=== PATIENT | male | born 1965 | race Caucasian/White ===

== ENCOUNTER 2017-05-04 11:52 | Emergency (ER) | payer OTHER ==
[~2017-05-04] VITALS: Ht 165.1 cm; Wt 89.0 kg
[2017-05-04 11:56] VITALS: Ht 165.1 cm; Wt 89.0 kg
--- NOTE | 2017-05-04 14:48 | ERD ---
ER Documentation Chief Complaint Date/Time DATE: 05/04/17 TIME: 14:43 Chief Complaint RIGHT FACIAL SWELLING, CAME FROM DENTIST ROS All systems reviewed and are negative except as per history of present illness. Physical Exam Vitals Vital Signs Date Time Temp Pulse Resp B/P Pulse Ox O2 Delivery O2 Flow Rate FiO2 05/04/17 11:56 98.8 90 20 160/90 99 Vitals stable, triage notes reviewed Physical Exam Const: [] Head: Atraumatic Eyes: Normal Conjunctiva ENT: Normal External Ears, Nose and Mouth. Neck: Full range of motion..~ No meningismus. Resp: Clear to auscultation bilaterally Cardio: Regular rate and rhythm, no murmurs Abd: Soft, non tender, non distended. Normal bowel sounds Skin: No petechiae or rashes Back: No midline or flank tenderness Ext: No cyanosis, or edema Neur: Awake and alert Psych: Normal Mood and Affect Results 24 hrs Current Medications Medications (Trade) Dose Ordered Sig/Red Route PRN Reason Start Time Stop Time Status Last Admin Dose Admin Ibuprofen (Motrin) 400 mg ONCE ONCE PO 05/04/17 15:00 05/04/17 15:09 DC GABBY LAWSON May 04, 2017 14:48 05/04/17 15:01 UNV GABBY LAWSON May 04, 2017 14:48
[2017-05-04] MEDS ORDERED: IBUPROFEN 200 MG TAB PO ONE (15:00)
[2017-05-04] MEDS ORDERED: CLINDAMYCIN 900 MG/D5W (PMX) 50 ML IVPB STA (15:21)
[2017-05-04] MEDS ORDERED: HYDROCODONE/APAP (10/325) TAB PO ONE (15:30)
[2017-05-04] MEDS ORDERED: SOD CHLORIDE 0.9% 1,000 ML IV ONE (15:30)
[2017-05-04] MEDS ORDERED: CLINDAMYCIN 300 MG INJ IM ONE (16:00)
[2017-05-04] MEDS ORDERED: CLIN-73 PO (17:00)
--- NOTE | 2017-05-04 17:00 | ERD ---
ER Documentation Chief Complaint Date/Time DATE: 05/04/17 TIME: 16:48 Chief Complaint RIGHT FACIAL SWELLING, CAME FROM DENTIST HPI This 51-year-old male patient presents to emergency room for evaluation of right -sided jaw swelling. Patient reports root canal 3 weeks ago, status post antibiotic treatment, patient went to his dentist today for sudden onset of swelling which started yesterday. Dentist referred him to emergency department reporting that unable to exercise #30 tooth related to swelling. Patient has been on Augmentin 3 weeks ago. Patient had use Tylenol with codeine for pain control, has 1 pill left. ROS All systems reviewed and are negative except as per history of present illness. Physical Exam Vitals Vital Signs Date Time Temp Pulse Resp B/P Pulse Ox O2 Delivery O2 Flow Rate FiO2 05/04/17 11:56 98.8 90 20 160/90 99 Vitals stable, triage notes reviewed Physical Exam Const: Well-nourished, obese, well-hydrated 51-year-old male patient with obvious facial swelling no acute distress Head: Atraumatic Eyes: Normal Conjunctiva PERRLA, EOMI ENT: Normal External Ears, Nose , #30 tooth difficult to view related to gingival swelling, swelling in his past border of mandible, involves the submandibular space. Tongue is midline without swelling, normal height. Patient able to fully shut jaw, speech is clear, no saliva pooling posteriorly. Neck: Full range of motion..~Submandibular swelling Resp: Respirations even and unlabored, clear to auscultation bilaterally no stridor, or wheezing Cardio: S1-S2, no S3-S4 regular rate and rhythm, no murmurs Abd: Skin: Right mandible and submandibular swelling, erythema noted in inner cheek Back: Ext: Neur: Awake and alert Psych: Normal Mood and Affect Results 24 hrs Current Medications Medications (Trade) Dose Ordered Sig/Red Route PRN Reason Start Time Stop Time Status Last Admin Dose Admin Ibuprofen 400 mg 400 mg ONCE ONCE PO 05/04/17 15:00 05/04/17 15:09 DC Clindamycin HCl/ Dextrose 50 ml @ 50 mls/hr ONCE STAT IVPB 05/04/17 15:21 05/04/17 15:42 DC Sodium Chloride (NS) 1,000 ml @ 1,000 mls/hr Q1H ONCE IV 05/04/17 15:30 10/16/17 15:42 DC Acetaminophen/ Hydrocodone Bitart ([place] (10/325)) 1 tab ONCE ONCE PO 05/04/17 15:30 05/04/17 15:42 DC Clindamycin Phosphate (Cleocin) 600 mg ONCE ONCE IM 05/04/17 16:00 05/04/17 16:01 DC Procedures/MDM This 51-year-old male patient presents to emergency department for evaluation of right mandibular swelling, patient reports history of root canal 3 weeks ago , sudden onset of swelling yesterday, has seen his dentist today who instructed patient to go to emergency department for evaluation and treatment. Dentist documents unable to pull #32 secondary to swelling. Dentist is Dr. Zamorano. Patient's speech is clear, tongue is midline with no shift. No saliva pooling in throat. No stridor, no fever, patient able to open and close mouth without deficit. This case discussed with supervising physician Dr. Stapleton, imaging is not indicated at this time. In room course includes 600 mg intramuscular clindamycin, 5/325 milligrams [place] for pain, patient discharged home with clindamycin 300 mg 4 times daily 10 days, [place] 5/325 #20. Instructed to follow-up with dentist, return to emergency department 48 hours for reevaluation , strep return to emergency room instructions provided. Patient to return for difficulty swallowing, fever, pain not relieved with treatment, Patient is stable with no new complaints during ER course, clinically there is no current evidence to suggest airway obstruction, foreign body in airway, cellulitis, parotiditis, respiratory distress, or any other emergent condition appearing to require further evaluation or hospitalization. I feel the patient is stable for discharge at this time. I have discussed results, examination findings, the treatment plan with the patient and family present prior to discharge. Indications for emergent reevaluation, side effects of medication were also discussed. All questions were answered. Patient verbalizes understanding and agrees with plan of care. Departure Diagnosis: Primary Impression: Dental infection Condition: Good Patient Instructions: Dental Abscess, Dental Pain [facility] Additional Instructions: Thank you for for coming to [facility] for your care today. Please ask your nurse or provider if you have questions about your care today and do not leave until all your questions have been answered. Please use any medications given as directed and follow-up with your doctor (or the doctor you were referred to) in the next 2-3 days. If you do not have a primary care doctor you may follow up at the [facility] (listed below). You may also use motrin and tylenol as needed for fever and/or pain unless instructed otherwise by your provider or nurse. Indications for more urgent follow-up have been discussed, but you may return to the Emergency Department at ANY time for any worrisome or worsening symptoms. If you have abdominal pain, please know that no test or exam you received is perfect and you should follow up within 8 hours for continued pain. If you had any imaging studies today, such as an X-Ray or CT Scan, these studies will be reviewed later by a radiologist. You will be called if there are important findings that were not identified today, so make sure the contact information you provided at registration is correct. If you received any narcotic pain control medicine today, such as Vicodin, Morphine or Dilaudid, your coordination and judgment may be affected for a number of hours. Please do not drive or operate heavy machinery, and you may want someone to assist you at home. If you were given a prescription for narcotic medication, be aware that it is very addictive- use sparingly and only if necessary. GABBY LAWSON May 04, 2017 16:59
[2017-05-04] MEDS ORDERED: HYDR-906 PO (17:01)
[2017-05-04 17:25] VITALS: BP 148/83; PULSE 79; RESP 18; TEMP 98.5
== END 2017-05-04 17:29 | disposition home or self-care (01) ==
LOC: FTE 11:52
DX: K04.7 Periapical abscess without sinus (principal)
CPT/HCPCS: 96372; J7030